=== PATIENT | female | born 1960 | race Caucasian/White ===

== ENCOUNTER 2023-03-28 17:43 | Emergency (ER) | payer MEDICARE ==
[2023-03-28] VITALS (10 sets, daily range): BP systolic 106–141; BP diastolic 68–80
[~2023-03-28] VITALS: Ht 167.6 cm; Wt 69.8 kg
[2023-03-28] MEDS ORDERED: TRAMADOL HYDROC50 M1 PO (19:34)
== END 2023-03-28 19:58 | disposition home or self-care (01) ==
LOC: ED 17:43
DX: S92.355A Nondisplaced fracture of fifth metatarsal bone, left foot, initial encounter for closed fracture (principal); X50.0XXA Overexertion from strenuous movement or load, initial encounter; Y93.11 Activity, swimming; Y92.008 Other place in unspecified non-institutional (private) residence as the place of occurrence of the external cause